=== PATIENT | female | born 1970 | race Two or more races ===

== ENCOUNTER 2017-10-01 10:16 | Day surgery (SDC) | payer OTHER ==
[2017-10-01] MEDS ORDERED: LIDOCAINE 4% SOLUTION 50 ML BTL (11:28)
[2017-10-01] MEDS ORDERED: MIDAZOLAM 1 MG/ML 2 ML INJ ×2 (12:14)
[2017-10-01] MEDS ORDERED: FENTAnyl 50 MCG/ML VIAL (12:15)
== END 2017-10-01 15:00 | disposition home or self-care (01) ==
LOC: GIL 10:16
DX: K29.50 Unspecified chronic gastritis without bleeding (principal); K64.4 Residual hemorrhoidal skin tags; K64.8 Other hemorrhoids; K21.0 Gastro-esophageal reflux disease with esophagitis
CPT/HCPCS: 43239; 82962; 88305; 88312

== ENCOUNTER 2019-01-02 11:07 | Inpatient (IN) | payer OTHER ==
[2019-01-02] MEDS: morphine 4 MG/ML VIAL IV ×2 (11:46→14:14)
[2019-01-02] MEDS: SOD CHLORIDE 0.9% 1,000 ML IV ×3 (11:46→17:39)
[2019-01-02] MEDS: ONDANSETRON 4 MG INJ IV ×3 (11:46→17:40)
[2019-01-02 11:47] LABS: ADD MAN DIFF? NO
[2019-01-02] MEDS: ACETAMINOPHEN 500 MG TAB PO ×2 (11:47→11:48)
[2019-01-02 11:51] LABS: BASOPHILS % 0.2 % (0.0-2.0); EOSINOPHILS # 0.1 10^3/ul (0.0-0.5); EOSINOPHILS % 1.4 % (0.0-7.0); HEMATOCRIT 40.1 % (37.0-47.0); HEMOGLOBIN 12.6 g/dl (12.0-16.0); LYMPHOCYTES # 3.1 10^3/ul (0.8-2.9); LYMPHOCYTES % 29.5 % (15.0-51.0); MEAN CORPUSCULAR HEMOGLOBIN 27.1 pg (29.0-33.0); MEAN CORPUSCULAR HGB CONC 31.4 g/dl (32.0-37.0); MEAN CORPUSCULAR VOLUME 86.2 fl (82.0-101.0); MONOCYTE # 0.5 10^3/ul (0.3-0.9); MONOCYTES % 5.1 % (0.0-11.0); NEUTROPHIL # 6.6 10^3/ul (1.6-7.5); NEUTROPHILS % 63.6 % (39.0-77.0); PLATELET COUNT 234 10^3/UL (140-415); RED BLOOD COUNT 4.65 10^6/ul (4.20-5.40); RED CELL DISTRIBUTION WIDTH 13.8 % (11.5-14.5)
[2019-01-02 11:51] LABS: WHITE BLOOD COUNT 10.3 10^3/ul (4.8-10.8)
[2019-01-02 11:59] LABS: ADD UMIC YES; UR ASCORBIC ACID NEGATIVE (NEGATIVE); UR BILIRUBIN (Dip) NEGATIVE (NEGATIVE); UR BLOOD (Dip) NEGATIVE (NEGATIVE); UR CLARITY CLEAR (CLEAR); UR COLOR YELLOW (YELLOW); UR GLUCOSE (Dip) NEGATIVE (NEGATIVE); UR KETONES (Dip) NEGATIVE (NEGATIVE); UR LEUKOCYTE ESTERASE (Dip) 2+ Leu/ul (NEGATIVE); UR NITRITE (Dip) NEGATIVE (NEGATIVE); UR RBC 1 /HPF (0-5); UR SPECIFIC GRAVITY (Dip) 1.011 (1.003-1.030); UR TOTAL PROTEIN (Dip) NEGATIVE (NEGATIVE); UR UROBILINOGEN (Dip) NEGATIVE (NEGATIVE); UR WBC 13 /HPF (0-5)
[2019-01-02] MEDS: IBUPROFEN 800 MG TAB PO (12:06)
[2019-01-02 12:09] LABS: ALANINE AMINOTRANSFERASE 32 IU/L (13-69); ALBUMIN 4.3 g/dl (3.3-4.9); ALBUMIN/GLOBULIN RATIO 1.19; ALKALINE PHOSPHATASE 108 IU/L (42-121); AMYLASE 112 U/L (11-123); ANION GAP 9 (5-13); ASPARTATE AMINO TRANSFERASE 42 IU/L (15-46); BILIRUBIN,INDIRECT 0.4 mg/dl (0-1.1); BILIRUBIN,TOTAL 0.4 mg/dl (0.2-1.3); BLOOD UREA NITROGEN 6 mg/dl (7-20); CALCIUM 9.7 mg/dl (8.4-10.2); CARBON DIOXIDE 26 mmol/L (21-31); CHLORIDE 106 mmol/L (97-110); CREATININE 0.55 mg/dl (0.44-1.00); Estimated GFR > 60 mL/min (>60); GLUCOSE 129 mg/dl (70-220); LIPASE 288 U/L (23-300); POTASSIUM 4.3 mmol/L (3.5-5.1); SODIUM 141 mmol/L (135-144); TOTAL PROTEIN 7.9 g/dl (6.1-8.1)
[2019-01-02 12:10] LABS: INR 1.03; PROTIME 13.6 Sec (11.9-14.9); PT RATIO 1.1
[2019-01-02 12:11] LABS: PARTIAL THROMBOPLASTIN TIME 32.9 Sec (23.0-35.0)
[2019-01-02 12:19] LABS: TROPONIN-I < 0.012 ng/ml (0.000-0.120)
[2019-01-02] MEDS: SOD CHLORIDE 0.9% 100 ML (13:00)
[2019-01-02] MEDS: IOHEXOL 300MG/ML 150 ML BTL (13:00)
[2019-01-02 13:58] LABS: CHOL/HDL RATIO 3.4 RATIO; HDL CHOLESTEROL 41 mg/dl (37-92); LDL CHOLESTEROL,CALCULATED 65 mg/dl; TRIGLYCERIDES 186 mg/dl (0-149)
[2019-01-02 13:58] LABS: CHOLESTEROL 143 mg/dl (100-200)
[2019-01-02] MEDS ORDERED: ACETAMINOPHEN 325 MG TAB PO (15:30)
[2019-01-02] MEDS ORDERED: ONDANSETRON 4 MG INJ IV (15:30)
[2019-01-02] MEDS ORDERED: NACL 0.9% 3 ML SYG IV (17:00)
[2019-01-02] MEDS: morphine 2 MG INJ IV ×2 (17:40→22:16)
[2019-01-02 18:59] LABS: HEMOGLOBIN A1C 7.2 % (0-5.9)
[2019-01-02 19:42] LABS: CANCER ANTIGEN 19-9 40.6 U/ml (0.0-37.0)
[2019-01-03] MEDS: SOD CHLORIDE 0.9% 1,000 ML IV ×4 (01:09→18:12)
[2019-01-03] MEDS: morphine 2 MG INJ IV ×5 (05:26→22:56)
[2019-01-03] MEDS: ACETAMINOPHEN 500 MG TAB PO (12:11)
[2019-01-03] MEDS: CREON (24K-76K-120K) 1 CAP PO ×2 (13:11→17:14)
[2019-01-03] MEDS ORDERED: ALBUTEROL HFA 8 GM INHALER INH (21:00)
[2019-01-03] MEDS: ATORVASTATIN 10 MG TAB PO (21:04)
[2019-01-03] MEDS: ALBUTEROL 0.083% (NEB) 2.5 MG/3 ML AMP HHN (21:54)
[2019-01-04] MEDS: SOD CHLORIDE 0.9% 1,000 ML IV ×3 (02:01→20:16)
[2019-01-04] MEDS: morphine 2 MG INJ IV ×4 (03:14→20:19)
[2019-01-04] MEDS: ALBUTEROL 0.083% (NEB) 2.5 MG/3 ML AMP HHN (04:18)
[2019-01-04] MEDS: PANTOPRAZOLE (EC) 40 MG TAB PO (05:37)
[2019-01-04 06:01] LABS: ADD MAN DIFF? NO
[2019-01-04 06:07] LABS: WHITE BLOOD COUNT 4.7 10^3/ul (4.8-10.8)
[2019-01-04 06:07] LABS: HEMATOCRIT 33.1 % (37.0-47.0); HEMOGLOBIN 10.4 g/dl (12.0-16.0); MEAN CORPUSCULAR HEMOGLOBIN 27.3 pg (29.0-33.0); MEAN CORPUSCULAR HGB CONC 31.4 g/dl (32.0-37.0); MEAN CORPUSCULAR VOLUME 86.9 fl (82.0-101.0); MEAN PLATELET VOLUME 10.3 fl (7.4-10.4); PLATELET COUNT 152 10^3/UL (140-415); RED BLOOD COUNT 3.81 10^6/ul (4.20-5.40); RED CELL DISTRIBUTION WIDTH 13.9 % (11.5-14.5)
[2019-01-04 06:32] LABS: ALANINE AMINOTRANSFERASE 34 IU/L (13-69); ALBUMIN 3.4 g/dl (3.3-4.9); ALBUMIN/GLOBULIN RATIO 1.09; ALKALINE PHOSPHATASE 79 IU/L (42-121); AMYLASE 108 U/L (11-123); ANION GAP 7 (5-13); ASPARTATE AMINO TRANSFERASE 31 IU/L (15-46); BILIRUBIN,INDIRECT 0.3 mg/dl (0-1.1); BILIRUBIN,TOTAL 0.3 mg/dl (0.2-1.3); BLOOD UREA NITROGEN 4 mg/dl (7-20); CALCIUM 8.9 mg/dl (8.4-10.2); CARBON DIOXIDE 27 mmol/L (21-31); CHLORIDE 105 mmol/L (97-110); Estimated GFR > 60 mL/min (>60); GLUCOSE 127 mg/dl (70-220); LIPASE 145 U/L (23-300); POTASSIUM 3.6 mmol/L (3.5-5.1); SODIUM 139 mmol/L (135-144); TOTAL PROTEIN 6.5 g/dl (6.1-8.1)
[2019-01-04 06:33] LABS: PHOSPHORUS 4.5 mg/dl (2.5-4.9)
[2019-01-04] MEDS: CREON (24K-76K-120K) 1 CAP PO ×3 (07:55→17:30)
[2019-01-04 10:24] LABS: EOSINOPHILS % (M) 3 % (0-7); LYMPHOCYTES #M 1.5 10^3/ul (0.8-2.9); LYMPHOCYTES % (M) 32 % (15-51); MONOCYTE #M 0.1 10^3/ul (0.3-0.9); MONOCYTES % (M) 4 % (0-11); PLATELET ESTIMATE NORMAL; SEGMENTED NEUTROPHILS (M) % 61 % (39-77); SMUDGE%M 10 % (0-0)
[2019-01-04] MEDS: ACETAMINOPHEN 500 MG TAB PO (11:57)
[2019-01-04] MEDS: ATORVASTATIN 10 MG TAB PO (21:07)
[2019-01-05] MEDS: ACETAMINOPHEN 500 MG TAB PO (00:12)
[2019-01-05] MEDS: SOD CHLORIDE 0.9% 1,000 ML IV ×3 (05:00→22:42)
[2019-01-05] MEDS: PANTOPRAZOLE (EC) 40 MG TAB PO (06:17)
[2019-01-05 06:19] LABS: ADD MAN DIFF? NO
[2019-01-05 06:24] LABS: BASOPHILS % 0.4 % (0.0-2.0); EOSINOPHILS # 0.1 10^3/ul (0.0-0.5); EOSINOPHILS % 2.5 % (0.0-7.0); HEMATOCRIT 33.6 % (37.0-47.0); HEMOGLOBIN 10.7 g/dl (12.0-16.0); LYMPHOCYTES # 2.6 10^3/ul (0.8-2.9); LYMPHOCYTES % 50.9 % (15.0-51.0); MEAN CORPUSCULAR HEMOGLOBIN 27.5 pg (29.0-33.0); MEAN CORPUSCULAR HGB CONC 31.8 g/dl (32.0-37.0); MEAN CORPUSCULAR VOLUME 86.4 fl (82.0-101.0); MEAN PLATELET VOLUME 10.2 fl (7.4-10.4); MONOCYTE # 0.2 10^3/ul (0.3-0.9); MONOCYTES % 4.7 % (0.0-11.0); NEUTROPHIL # 2.1 10^3/ul (1.6-7.5); NEUTROPHILS % 41.3 % (39.0-77.0); PLATELET COUNT 185 10^3/UL (140-415); RED BLOOD COUNT 3.89 10^6/ul (4.20-5.40); RED CELL DISTRIBUTION WIDTH 13.6 % (11.5-14.5)
[2019-01-05 06:24] LABS: WHITE BLOOD COUNT 5.1 10^3/ul (4.8-10.8)
[2019-01-05 06:47] LABS: PHOSPHORUS 4.9 mg/dl (2.5-4.9)
[2019-01-05 06:48] LABS: ALANINE AMINOTRANSFERASE 33 IU/L (13-69); ALBUMIN 3.6 g/dl (3.3-4.9); ALBUMIN/GLOBULIN RATIO 1.05; ALKALINE PHOSPHATASE 96 IU/L (42-121); ANION GAP 8 (5-13); ASPARTATE AMINO TRANSFERASE 44 IU/L (15-46); BILIRUBIN,INDIRECT 0.5 mg/dl (0-1.1); BILIRUBIN,TOTAL 0.5 mg/dl (0.2-1.3); BLOOD UREA NITROGEN 4 mg/dl (7-20); CALCIUM 8.9 mg/dl (8.4-10.2); CARBON DIOXIDE 27 mmol/L (21-31); CHLORIDE 107 mmol/L (97-110); Estimated GFR > 60 mL/min (>60); GLUCOSE 110 mg/dl (70-220); POTASSIUM 3.8 mmol/L (3.5-5.1); SODIUM 142 mmol/L (135-144)
[2019-01-05] MEDS: morphine 2 MG INJ IV ×4 (07:07→20:27)
[2019-01-05] MEDS: CREON (24K-76K-120K) 1 CAP PO ×3 (08:27→18:10)
[2019-01-05] MEDS: ONDANSETRON 4 MG INJ IV ×2 (11:46→20:30)
[2019-01-05] MEDS: LORATADINE 10 MG TAB PO (15:23)
[2019-01-05] MEDS: ATORVASTATIN 10 MG TAB PO (20:27)
[2019-01-06] MEDS: morphine 2 MG INJ IV ×5 (00:27→18:11)
[2019-01-06] MEDS: ONDANSETRON 4 MG INJ IV ×4 (03:31→22:34)
[2019-01-06 05:36] LABS: ADD MAN DIFF? NO
[2019-01-06 05:48] LABS: BASOPHILS % 0.5 % (0.0-2.0); EOSINOPHILS # 0.2 10^3/ul (0.0-0.5); HEMATOCRIT 33.9 % (37.0-47.0); HEMOGLOBIN 10.7 g/dl (12.0-16.0); LYMPHOCYTES # 2.7 10^3/ul (0.8-2.9); LYMPHOCYTES % 47.6 % (15.0-51.0); MEAN CORPUSCULAR HEMOGLOBIN 27.4 pg (29.0-33.0); MEAN CORPUSCULAR HGB CONC 31.6 g/dl (32.0-37.0); MEAN CORPUSCULAR VOLUME 86.7 fl (82.0-101.0); MEAN PLATELET VOLUME 10.3 fl (7.4-10.4); MONOCYTE # 0.3 10^3/ul (0.3-0.9); MONOCYTES % 4.5 % (0.0-11.0); NEUTROPHIL # 2.6 10^3/ul (1.6-7.5); NEUTROPHILS % 44.2 % (39.0-77.0); PLATELET COUNT 191 10^3/UL (140-415); RED BLOOD COUNT 3.91 10^6/ul (4.20-5.40); RED CELL DISTRIBUTION WIDTH 13.8 % (11.5-14.5)
[2019-01-06 05:48] LABS: WHITE BLOOD COUNT 5.8 10^3/ul (4.8-10.8)
[2019-01-06 05:58] LABS: MAGNESIUM 1.9 mg/dl (1.7-2.5)
[2019-01-06 06:00] LABS: ALANINE AMINOTRANSFERASE 34 IU/L (13-69); ALBUMIN 3.4 g/dl (3.3-4.9); ALBUMIN/GLOBULIN RATIO 1.09; ALKALINE PHOSPHATASE 76 IU/L (42-121); AMYLASE 85 U/L (11-123); ANION GAP 7 (5-13); ASPARTATE AMINO TRANSFERASE 41 IU/L (15-46); BILIRUBIN,INDIRECT 0.4 mg/dl (0-1.1); BILIRUBIN,TOTAL 0.4 mg/dl (0.2-1.3); BLOOD UREA NITROGEN 8 mg/dl (7-20); CARBON DIOXIDE 28 mmol/L (21-31); CHLORIDE 106 mmol/L (97-110); CREATININE 0.57 mg/dl (0.44-1.00); Estimated GFR > 60 mL/min (>60); GLUCOSE 121 mg/dl (70-220); LIPASE 127 U/L (23-300); POTASSIUM 3.9 mmol/L (3.5-5.1); SODIUM 141 mmol/L (135-144); TOTAL PROTEIN 6.5 g/dl (6.1-8.1)
[2019-01-06] MEDS: PANTOPRAZOLE (EC) 40 MG TAB PO (06:00)
[2019-01-06] MEDS: SOD CHLORIDE 0.9% 1,000 ML IV ×2 (06:46→15:10)
[2019-01-06] MEDS: CREON (24K-76K-120K) 1 CAP PO ×3 (08:42→18:14)
[2019-01-06] MEDS: LORATADINE 10 MG TAB PO (08:42)
[2019-01-06] MEDS: ATORVASTATIN 10 MG TAB PO (21:00)
[2019-01-06] MEDS: KETOROLAC 30 MG INJ IV (22:31)
[2019-01-07] MEDS: SOD CHLORIDE 0.9% 1,000 ML IV ×2 (03:18→18:36)
[2019-01-07] MEDS: PANTOPRAZOLE (EC) 40 MG TAB PO (05:44)
[2019-01-07 06:22] LABS: ADD MAN DIFF? NO
[2019-01-07 06:37] LABS: WHITE BLOOD COUNT 6.3 10^3/ul (4.8-10.8)
[2019-01-07 06:37] LABS: BASOPHILS % 0.3 % (0.0-2.0); EOSINOPHILS # 0.2 10^3/ul (0.0-0.5); HEMATOCRIT 35.4 % (37.0-47.0); HEMOGLOBIN 11.3 g/dl (12.0-16.0); LYMPHOCYTES # 2.6 10^3/ul (0.8-2.9); LYMPHOCYTES % 41.1 % (15.0-51.0); MEAN CORPUSCULAR HEMOGLOBIN 27.4 pg (29.0-33.0); MEAN CORPUSCULAR HGB CONC 31.9 g/dl (32.0-37.0); MEAN CORPUSCULAR VOLUME 85.7 fl (82.0-101.0); MEAN PLATELET VOLUME 9.6 fl (7.4-10.4); MONOCYTE # 0.3 10^3/ul (0.3-0.9); MONOCYTES % 5.2 % (0.0-11.0); NEUTROPHIL # 3.2 10^3/ul (1.6-7.5); NEUTROPHILS % 50.1 % (39.0-77.0); PLATELET COUNT 192 10^3/UL (140-415); RED BLOOD COUNT 4.13 10^6/ul (4.20-5.40); RED CELL DISTRIBUTION WIDTH 13.8 % (11.5-14.5)
[2019-01-07 06:50] LABS: INR 1.08; PROTIME 14.1 Sec (11.9-14.9); PT RATIO 1.1
[2019-01-07 07:15] LABS: ALANINE AMINOTRANSFERASE 37 IU/L (13-69); ALBUMIN 3.6 g/dl (3.3-4.9); ALKALINE PHOSPHATASE 92 IU/L (42-121); ANION GAP 7 (5-13); ASPARTATE AMINO TRANSFERASE 46 IU/L (15-46); BILIRUBIN,INDIRECT 0.3 mg/dl (0-1.1); BILIRUBIN,TOTAL 0.3 mg/dl (0.2-1.3); BLOOD UREA NITROGEN 10 mg/dl (7-20); CARBON DIOXIDE 28 mmol/L (21-31); CHLORIDE 107 mmol/L (97-110); CREATININE 0.58 mg/dl (0.44-1.00); Estimated GFR > 60 mL/min (>60); GLUCOSE 108 mg/dl (70-220); SODIUM 142 mmol/L (135-144); TOTAL PROTEIN 7.2 g/dl (6.1-8.1)
[2019-01-07 07:33] LABS: LIPASE 179 U/L (23-300)
[2019-01-07 07:33] LABS: LACTATE DEHYDROGENASE 436 IU/L (313-618)
[2019-01-07] MEDS: LORATADINE 10 MG TAB PO (09:00)
[2019-01-07] MEDS: CREON (24K-76K-120K) 1 CAP PO ×3 (09:34→18:36)
[2019-01-07] MEDS: PROPOFOL 40 ML (14:00)
[2019-01-07] MEDS: LIDOCAINE 2% (SDV) 5 ML INJ (14:00)
[2019-01-07] MEDS: ONDANSETRON 4 MG INJ IV (16:05)
[2019-01-07] MEDS: morphine 2 MG INJ IV ×2 (16:05→21:20)
[2019-01-07] MEDS: ATORVASTATIN 10 MG TAB PO (21:21)
[2019-01-08] MEDS: morphine 2 MG INJ IV ×5 (03:34→22:08)
[2019-01-08] MEDS: PANTOPRAZOLE (EC) 40 MG TAB PO (05:56)
[2019-01-08] MEDS: ONDANSETRON 4 MG INJ IV ×2 (05:59→18:06)
[2019-01-08 07:30] LABS: ADD MAN DIFF? NO
[2019-01-08 07:33] LABS: BASOPHILS % 0.3 % (0.0-2.0); EOSINOPHILS # 0.2 10^3/ul (0.0-0.5); HEMOGLOBIN 10.9 g/dl (12.0-16.0); LYMPHOCYTES # 2.8 10^3/ul (0.8-2.9); LYMPHOCYTES % 42.3 % (15.0-51.0); MEAN CORPUSCULAR HEMOGLOBIN 27.4 pg (29.0-33.0); MEAN CORPUSCULAR HGB CONC 32.1 g/dl (32.0-37.0); MEAN CORPUSCULAR VOLUME 85.4 fl (82.0-101.0); MEAN PLATELET VOLUME 9.6 fl (7.4-10.4); MONOCYTE # 0.3 10^3/ul (0.3-0.9); MONOCYTES % 4.7 % (0.0-11.0); NEUTROPHIL # 3.3 10^3/ul (1.6-7.5); NEUTROPHILS % 49.5 % (39.0-77.0); PLATELET COUNT 180 10^3/UL (140-415); RED BLOOD COUNT 3.98 10^6/ul (4.20-5.40); RED CELL DISTRIBUTION WIDTH 13.7 % (11.5-14.5)
[2019-01-08 07:33] LABS: WHITE BLOOD COUNT 6.6 10^3/ul (4.8-10.8)
[2019-01-08 07:55] LABS: LIPASE 140 U/L (23-300)
[2019-01-08 08:04] LABS: ALANINE AMINOTRANSFERASE 35 IU/L (13-69); ALBUMIN 3.6 g/dl (3.3-4.9); ALBUMIN/GLOBULIN RATIO 1.02; ALKALINE PHOSPHATASE 91 IU/L (42-121); ANION GAP 7 (5-13); ASPARTATE AMINO TRANSFERASE 38 IU/L (15-46); BILIRUBIN,INDIRECT 0.5 mg/dl (0-1.1); BILIRUBIN,TOTAL 0.5 mg/dl (0.2-1.3); BLOOD UREA NITROGEN 9 mg/dl (7-20); CALCIUM 8.9 mg/dl (8.4-10.2); CARBON DIOXIDE 27 mmol/L (21-31); CHLORIDE 107 mmol/L (97-110); CREATININE 0.56 mg/dl (0.44-1.00); Estimated GFR > 60 mL/min (>60); GLUCOSE 103 mg/dl (70-220); POTASSIUM 3.8 mmol/L (3.5-5.1); SODIUM 141 mmol/L (135-144); TOTAL PROTEIN 7.1 g/dl (6.1-8.1)
[2019-01-08] MEDS: ACETAMINOPHEN 500 MG TAB PO (08:52)
[2019-01-08] MEDS: LORATADINE 10 MG TAB PO (08:57)
[2019-01-08] MEDS: CREON (24K-76K-120K) 1 CAP PO ×3 (08:59→18:02)
[2019-01-08] MEDS: SOD CHLORIDE 0.9% 1,000 ML IV ×2 (09:56→21:52)
[2019-01-08] MEDS: ATORVASTATIN 10 MG TAB PO (21:47)
[2019-01-09] MEDS: ONDANSETRON 4 MG INJ IV (00:55)
[2019-01-09] MEDS: morphine 2 MG INJ IV ×4 (02:30→15:02)
[2019-01-09] MEDS: MAGNESIUM HYDROXIDE 30ML CUP PO ×2 (06:40→15:18)
[2019-01-09] MEDS: SENNA TAB PO (06:40)
[2019-01-09] MEDS: PANTOPRAZOLE (EC) 40 MG TAB PO (06:40)
[2019-01-09] MEDS: LORATADINE 10 MG TAB PO (09:06)
[2019-01-09] MEDS: CREON (24K-76K-120K) 1 CAP PO ×3 (09:06→17:49)
[2019-01-09] MEDS: DOCUSATE SODIUM 100 MG CAP PO (12:16)
[2019-01-09] MEDS ORDERED: traMADol 50 MG TAB PO (15:00)
[2019-01-09] MEDS ORDERED: morphine 2 MG INJ IV (15:00)
== END 2019-01-09 18:00 | disposition home or self-care (01) | DRG 439 ==
LOC: PP2 01-04 03:47 → E/R 11:07 → PP2 01-07 00:03 → 2NE 15:15
PROC: 0DB68ZX Excision of Stomach, Via Natural or Artificial Opening Endoscopic, Diagnostic (ICD-10-PCS; principal; 2019-01-07 13:30)
DX: K85.90 Acute pancreatitis without necrosis or infection, unspecified (principal); K86.3 Pseudocyst of pancreas; N39.0 Urinary tract infection, site not specified; K86.1 Other chronic pancreatitis; E66.9 Obesity, unspecified; Z68.30 Body mass index [BMI] 30.0-30.9, adult; E88.81 Metabolic syndrome and other insulin resistance; R16.0 Hepatomegaly, not elsewhere classified; K76.0 Fatty (change of) liver, not elsewhere classified; J45.909 Unspecified asthma, uncomplicated; Z90.49 Acquired absence of other specified parts of digestive tract; K21.9 Gastro-esophageal reflux disease without esophagitis; K29.30 Chronic superficial gastritis without bleeding; D64.9 Anemia, unspecified; E78.5 Hyperlipidemia, unspecified
CPT/HCPCS: 36415; 70360; 74018; 74177; 80053; 80061; 81001; 82150; 83036; 83615; 83690; 83735; 84100; 84145; 84484; 84703; 85025; 85610; 85730; 86301; 87086; 87880; 88305; 88312; 93005; 94640; 94664; 96361; 96374; 96375; 96376; 99285-25

== ENCOUNTER 2019-01-18 16:40 | Inpatient (IN) | payer OTHER ==
[2019-01-18] MEDS: morphine 4 MG/ML VIAL IV ×2 (16:58→19:55)
[2019-01-18] MEDS: ONDANSETRON 4 MG INJ IV ×3 (16:58→23:57)
[2019-01-18] MEDS: SOD CHLORIDE 0.9% 1,000 ML IV (16:58)
[2019-01-18 17:10] LABS: ADD MAN DIFF? NO
[2019-01-18 17:15] LABS: WHITE BLOOD COUNT 13.6 10^3/ul (4.8-10.8)
[2019-01-18 17:15] LABS: BASOPHILS % 0.3 % (0.0-2.0); EOSINOPHILS # 0.1 10^3/ul (0.0-0.5); EOSINOPHILS % 0.4 % (0.0-7.0); HEMATOCRIT 38.4 % (37.0-47.0); HEMOGLOBIN 12.2 g/dl (12.0-16.0); LYMPHOCYTES # 2.6 10^3/ul (0.8-2.9); MEAN CORPUSCULAR HEMOGLOBIN 27.4 pg (29.0-33.0); MEAN CORPUSCULAR HGB CONC 31.8 g/dl (32.0-37.0); MEAN CORPUSCULAR VOLUME 86.1 fl (82.0-101.0); MEAN PLATELET VOLUME 9.9 fl (7.4-10.4); MONOCYTE # 0.5 10^3/ul (0.3-0.9); MONOCYTES % 3.6 % (0.0-11.0); NEUTROPHIL # 10.4 10^3/ul (1.6-7.5); NEUTROPHILS % 76.3 % (39.0-77.0); PLATELET COUNT 251 10^3/UL (140-415); RED BLOOD COUNT 4.46 10^6/ul (4.20-5.40)
[2019-01-18 17:30] LABS: ALANINE AMINOTRANSFERASE 32 IU/L (13-69); ALBUMIN 4.2 g/dl (3.3-4.9); ALBUMIN/GLOBULIN RATIO 1.07; ALKALINE PHOSPHATASE 113 IU/L (42-121); ANION GAP 12 (5-13); ASPARTATE AMINO TRANSFERASE 52 IU/L (15-46); BILIRUBIN,INDIRECT 0.4 mg/dl (0-1.1); BILIRUBIN,TOTAL 0.4 mg/dl (0.2-1.3); BLOOD UREA NITROGEN 13 mg/dl (7-20); CALCIUM 9.4 mg/dl (8.4-10.2); CARBON DIOXIDE 24 mmol/L (21-31); CHLORIDE 104 mmol/L (97-110); CREATININE 0.56 mg/dl (0.44-1.00); Estimated GFR > 60 mL/min (>60); GLUCOSE 179 mg/dl (70-220); POTASSIUM 3.7 mmol/L (3.5-5.1); SODIUM 140 mmol/L (135-144); TOTAL PROTEIN 8.1 g/dl (6.1-8.1)
[2019-01-18 17:33] LABS: INR 1.06; PROTIME 13.9 Sec (11.9-14.9); PT RATIO 1.1
[2019-01-18 17:34] LABS: PARTIAL THROMBOPLASTIN TIME 30.4 Sec (23.0-35.0)
[2019-01-18 17:36] LABS: AMYLASE 1989 U/L (11-123)
[2019-01-18] MEDS: SOD CHLORIDE 0.9% 100 ML (17:39)
[2019-01-18] MEDS: IOHEXOL 300MG/ML 150 ML BTL (17:39)
[2019-01-18 17:41] LABS: TROPONIN-I < 0.012 ng/ml (0.000-0.120)
[2019-01-18] MEDS: LORAZEPAM 2 MG INJ IV (17:43)
[2019-01-18 18:01] LABS: LIPASE 17728 U/L (23-300)
[2019-01-18] MEDS: KETAMINE (50 MG/ML) 10 ML VIAL IV (18:19)
[2019-01-18] MEDS: PIPER-TAZO 3.375 GM IV (PMX) 100 ML IVPB (21:21)
[2019-01-18] MEDS ORDERED: ACETAMINOPHEN 325 MG TAB PO (21:30)
[2019-01-18] MEDS: LACTATED RINGER'S 1,000 ML IV (21:44)
[2019-01-18 21:47] LABS: TRIGLYCERIDES 276 mg/dl (0-149)
[2019-01-18 21:54] LABS: ETHANOL < 10.0 mg/dl (0-0)
[2019-01-18] MEDS: HYDROmorphONE 2 MG/ML SYG IV (23:58)
[2019-01-19] MEDS: LACTATED RINGER'S 1,000 ML IV ×5 (02:22→22:46)
[2019-01-19 05:14] LABS: ADD MAN DIFF? NO
[2019-01-19] MEDS: PANTOPRAZOLE 40 MG INJ IV (05:14)
[2019-01-19] MEDS: ONDANSETRON 4 MG INJ IV ×3 (05:15→23:27)
[2019-01-19] MEDS: HYDROmorphONE 2 MG/ML SYG IV ×4 (05:15→22:01)
[2019-01-19 05:20] LABS: WHITE BLOOD COUNT 10.7 10^3/ul (4.8-10.8)
[2019-01-19 05:20] LABS: BASOPHILS % 0.3 % (0.0-2.0); EOSINOPHILS # 0.1 10^3/ul (0.0-0.5); EOSINOPHILS % 0.6 % (0.0-7.0); HEMATOCRIT 33.1 % (37.0-47.0); HEMOGLOBIN 10.7 g/dl (12.0-16.0); LYMPHOCYTES # 3.3 10^3/ul (0.8-2.9); LYMPHOCYTES % 31.3 % (15.0-51.0); MEAN CORPUSCULAR HEMOGLOBIN 27.8 pg (29.0-33.0); MEAN CORPUSCULAR HGB CONC 32.3 g/dl (32.0-37.0); MEAN PLATELET VOLUME 10.2 fl (7.4-10.4); MONOCYTE # 0.5 10^3/ul (0.3-0.9); MONOCYTES % 5.1 % (0.0-11.0); NEUTROPHIL # 6.7 10^3/ul (1.6-7.5); NEUTROPHILS % 62.3 % (39.0-77.0); PLATELET COUNT 236 10^3/UL (140-415); RED BLOOD COUNT 3.85 10^6/ul (4.20-5.40); RED CELL DISTRIBUTION WIDTH 14.3 % (11.5-14.5)
[2019-01-19 06:15] LABS: ALANINE AMINOTRANSFERASE 25 IU/L (13-69); ALBUMIN 3.4 g/dl (3.3-4.9); ALBUMIN/GLOBULIN RATIO 1.06; ALKALINE PHOSPHATASE 79 IU/L (42-121); ANION GAP 6 (5-13); ASPARTATE AMINO TRANSFERASE 37 IU/L (15-46); BILIRUBIN,INDIRECT 0.7 mg/dl (0-1.1); BILIRUBIN,TOTAL 0.7 mg/dl (0.2-1.3); BLOOD UREA NITROGEN 14 mg/dl (7-20); CALCIUM 8.7 mg/dl (8.4-10.2); CARBON DIOXIDE 27 mmol/L (21-31); CHLORIDE 107 mmol/L (97-110); CREATININE 0.55 mg/dl (0.44-1.00); Estimated GFR > 60 mL/min (>60); GLUCOSE 121 mg/dl (70-220); PHOSPHORUS 5.5 mg/dl (2.5-4.9); POTASSIUM 4.3 mmol/L (3.5-5.1); SODIUM 140 mmol/L (135-144); TOTAL PROTEIN 6.6 g/dl (6.1-8.1)
[2019-01-19 07:13] LABS: HEMOGLOBIN A1C 6.8 % (0-5.9)
[2019-01-19] MEDS ORDERED: PE/SHARK OIL/MO/PETROL 30 GM OINT PR (11:30)
[2019-01-19] MEDS ORDERED: ALBUTEROL 18 GM INHALER INH (11:30)
[2019-01-19] MEDS: ACETAMINOPHEN 325 MG TAB PO (12:41)
[2019-01-19 14:23] LABS: IMMUNOGLOBULIN G 1213 mg/dl (700-1600)
[2019-01-19] MEDS: FAMOTIDINE 20 MG INJ IV (22:02)
[2019-01-19] MEDS: HEPARIN 5,000 UNIT/1 ML VIAL SC (22:04)
[2019-01-19] MEDS: ALBUTEROL HFA 8 GM INHALER INH (22:06)
[2019-01-20] MEDS: ACETAMINOPHEN 325 MG TAB PO ×2 (02:21→19:41)
[2019-01-20] MEDS: LACTATED RINGER'S 1,000 ML IV ×5 (03:47→23:07)
[2019-01-20 05:19] LABS: ADD MAN DIFF? NO
[2019-01-20 05:24] LABS: WHITE BLOOD COUNT 6.8 10^3/ul (4.8-10.8)
[2019-01-20 05:24] LABS: BASOPHILS % 0.1 % (0.0-2.0); EOSINOPHILS # 0.2 10^3/ul (0.0-0.5); EOSINOPHILS % 2.9 % (0.0-7.0); HEMATOCRIT 28.8 % (37.0-47.0); LYMPHOCYTES # 2.5 10^3/ul (0.8-2.9); LYMPHOCYTES % 36.8 % (15.0-51.0); MEAN CORPUSCULAR HEMOGLOBIN 27.4 pg (29.0-33.0); MEAN CORPUSCULAR HGB CONC 31.3 g/dl (32.0-37.0); MEAN CORPUSCULAR VOLUME 87.5 fl (82.0-101.0); MEAN PLATELET VOLUME 10.1 fl (7.4-10.4); MONOCYTE # 0.4 10^3/ul (0.3-0.9); MONOCYTES % 5.3 % (0.0-11.0); NEUTROPHIL # 3.7 10^3/ul (1.6-7.5); NEUTROPHILS % 54.6 % (39.0-77.0); PLATELET COUNT 154 10^3/UL (140-415); RED BLOOD COUNT 3.29 10^6/ul (4.20-5.40); RED CELL DISTRIBUTION WIDTH 14.3 % (11.5-14.5)
[2019-01-20 05:56] LABS: ANION GAP 4 (5-13); BLOOD UREA NITROGEN 9 mg/dl (7-20); CALCIUM 8.1 mg/dl (8.4-10.2); CARBON DIOXIDE 29 mmol/L (21-31); CHLORIDE 105 mmol/L (97-110); CREATININE 0.49 mg/dl (0.44-1.00); Estimated GFR > 60 mL/min (>60); GLUCOSE 100 mg/dl (70-220); MAGNESIUM 1.8 mg/dl (1.7-2.5); PHOSPHORUS 3.7 mg/dl (2.5-4.9); POTASSIUM 3.5 mmol/L (3.5-5.1); SODIUM 138 mmol/L (135-144)
[2019-01-20] MEDS: HYDROmorphONE 2 MG/ML SYG IV ×3 (06:13→20:45)
[2019-01-20] MEDS: HEPARIN 5,000 UNIT/1 ML VIAL SC ×2 (09:22→20:50)
[2019-01-20] MEDS: FAMOTIDINE 20 MG INJ IV ×2 (09:23→20:45)
[2019-01-20 09:33] LABS: AMPHETAMINE/METHAMPHETAMINE Negative (NEGATIVE); BARBITURATES Negative (NEGATIVE); BENZODIAZEPINES Negative (NEGATIVE); CANNABINOIDS Negative (NEGATIVE); COCAINE Negative (NEGATIVE); OPIATES Positive (NEGATIVE)
[2019-01-20] MEDS: ONDANSETRON 4 MG INJ IV ×2 (11:16→18:22)
[2019-01-20] MEDS: ALBUTEROL HFA 8 GM INHALER INH (17:53)
[2019-01-20 20:00] LABS: LIPASE 283 U/L (23-300)
[2019-01-20 20:00] LABS: AMYLASE 179 U/L (11-123)
[2019-01-20] MEDS: DIPHENHYDRAMINE 50 MG INJ IV (20:54)
[2019-01-21] MEDS: HYDROmorphONE 2 MG/ML SYG IV ×5 (01:36→22:32)
[2019-01-21] MEDS: ONDANSETRON 4 MG INJ IV ×3 (01:42→20:43)
[2019-01-21] MEDS: DIPHENHYDRAMINE 50 MG INJ IV ×5 (01:42→22:32)
[2019-01-21] MEDS: LACTATED RINGER'S 1,000 ML IV ×4 (04:44→20:53)
[2019-01-21] MEDS: ACETAMINOPHEN 500 MG TAB PO ×2 (05:01→16:34)
[2019-01-21 05:53] LABS: ADD MAN DIFF? NO; BASOPHILS % 0.4 % (0.0-2.0); EOSINOPHILS # 0.2 10^3/ul (0.0-0.5); EOSINOPHILS % 2.7 % (0.0-7.0); HEMATOCRIT 27.5 % (37.0-47.0); HEMOGLOBIN 8.5 g/dl (12.0-16.0); LYMPHOCYTES # 2.4 10^3/ul (0.8-2.9); LYMPHOCYTES % 42.8 % (15.0-51.0); MEAN CORPUSCULAR HEMOGLOBIN 27.3 pg (29.0-33.0); MEAN CORPUSCULAR HGB CONC 30.9 g/dl (32.0-37.0); MEAN CORPUSCULAR VOLUME 88.4 fl (82.0-101.0); MEAN PLATELET VOLUME 10.2 fl (7.4-10.4); MONOCYTE # 0.3 10^3/ul (0.3-0.9); MONOCYTES % 5.8 % (0.0-11.0); NEUTROPHIL # 2.6 10^3/ul (1.6-7.5); NEUTROPHILS % 47.9 % (39.0-77.0); PLATELET COUNT 150 10^3/UL (140-415); RED BLOOD COUNT 3.11 10^6/ul (4.20-5.40); RED CELL DISTRIBUTION WIDTH 14.1 % (11.5-14.5)
[2019-01-21 05:53] LABS: WHITE BLOOD COUNT 5.5 10^3/ul (4.8-10.8)
[2019-01-21 06:25] LABS: LIPASE 249 U/L (23-300)
[2019-01-21 06:30] LABS: ANION GAP 4 (5-13); Estimated GFR > 60 mL/min (>60)
[2019-01-21 06:38] LABS: BLOOD UREA NITROGEN 5 mg/dl (7-20); CALCIUM 8.1 mg/dl (8.4-10.2); CARBON DIOXIDE 33 mmol/L (21-31); CHLORIDE 102 mmol/L (97-110); GLUCOSE 82 mg/dl (70-220); POTASSIUM 3.7 mmol/L (3.5-5.1); SODIUM 139 mmol/L (135-144)
[2019-01-21] MEDS: FAMOTIDINE 20 MG INJ IV ×2 (09:50→20:46)
[2019-01-21] MEDS: HEPARIN 5,000 UNIT/1 ML VIAL SC ×2 (09:51→20:51)
[2019-01-21] MEDS: ALBUTEROL HFA 8 GM INHALER INH ×2 (09:59→16:38)
[2019-01-22] MEDS: ALBUTEROL HFA 8 GM INHALER INH ×2 (02:35→07:25)
[2019-01-22] MEDS: DIPHENHYDRAMINE 50 MG INJ IV ×4 (02:57→21:36)
[2019-01-22] MEDS: HYDROmorphONE 2 MG/ML SYG IV ×4 (02:57→21:36)
[2019-01-22 05:30] LABS: ADD MAN DIFF? NO
[2019-01-22 05:36] LABS: WHITE BLOOD COUNT 5.4 10^3/ul (4.8-10.8)
[2019-01-22 05:36] LABS: BASOPHILS % 0.2 % (0.0-2.0); EOSINOPHILS # 0.2 10^3/ul (0.0-0.5); EOSINOPHILS % 3.3 % (0.0-7.0); HEMATOCRIT 26.8 % (37.0-47.0); HEMOGLOBIN 8.5 g/dl (12.0-16.0); LYMPHOCYTES # 2.3 10^3/ul (0.8-2.9); LYMPHOCYTES % 42.9 % (15.0-51.0); MEAN CORPUSCULAR HEMOGLOBIN 27.8 pg (29.0-33.0); MEAN CORPUSCULAR HGB CONC 31.7 g/dl (32.0-37.0); MEAN CORPUSCULAR VOLUME 87.6 fl (82.0-101.0); MEAN PLATELET VOLUME 10.4 fl (7.4-10.4); MONOCYTE # 0.3 10^3/ul (0.3-0.9); MONOCYTES % 5.5 % (0.0-11.0); NEUTROPHIL # 2.6 10^3/ul (1.6-7.5); NEUTROPHILS % 47.9 % (39.0-77.0); PLATELET COUNT 178 10^3/UL (140-415); RED BLOOD COUNT 3.06 10^6/ul (4.20-5.40); RED CELL DISTRIBUTION WIDTH 14.2 % (11.5-14.5)
[2019-01-22 06:05] LABS: ANION GAP 5 (5-13); BLOOD UREA NITROGEN 4 mg/dl (7-20); CALCIUM 8.2 mg/dl (8.4-10.2); CARBON DIOXIDE 32 mmol/L (21-31); CHLORIDE 102 mmol/L (97-110); CREATININE 0.53 mg/dl (0.44-1.00); Estimated GFR > 60 mL/min (>60); GLUCOSE 96 mg/dl (70-220); POTASSIUM 3.5 mmol/L (3.5-5.1); SODIUM 139 mmol/L (135-144)
[2019-01-22] MEDS: ONDANSETRON 4 MG INJ IV ×2 (08:33→21:32)
[2019-01-22] MEDS: FAMOTIDINE 20 MG INJ IV ×2 (08:33→21:30)
[2019-01-22] MEDS: HEPARIN 5,000 UNIT/1 ML VIAL SC ×2 (08:35→21:43)
[2019-01-22 09:08] LABS: AMYLASE 78 U/L (11-123)
[2019-01-22 09:08] LABS: LIPASE 115 U/L (23-300)
[2019-01-22] MEDS: SOD CHLORIDE 0.9% 1,000 ML IV ×2 (09:38→17:56)
[2019-01-22 09:47] LABS: IRON 35 ug/dl (35-150)
[2019-01-22 09:56] LABS: % IRON SATURATION 13 % SAT (22-52); TOTAL IRON BINDING CAPACITY 272 ug/dl (241-421)
[2019-01-22 10:23] LABS: FERRITIN 87.6 ng/ml (11.1-264.0)
[2019-01-22 13:03] LABS: OCCULT BLOOD STOOL NEGATIVE (NEGATIVE)
[2019-01-22] MEDS: KETOROLAC 30 MG INJ IV (13:10)
[2019-01-22] MEDS: ACETAMINOPHEN 500 MG TAB PO (13:16)
[2019-01-22] MEDS: ALBUTEROL 0.083% (NEB) 2.5 MG/3 ML AMP HHN ×2 (13:53→20:30)
[2019-01-23] MEDS: DIPHENHYDRAMINE 50 MG INJ IV ×4 (01:44→20:14)
[2019-01-23] MEDS: HYDROmorphONE 2 MG/ML SYG IV ×4 (01:44→20:15)
[2019-01-23] MEDS: SOD CHLORIDE 0.9% 1,000 ML IV ×3 (01:50→20:21)
[2019-01-23 05:49] LABS: ADD MAN DIFF? NO
[2019-01-23 06:00] LABS: WHITE BLOOD COUNT 4.8 10^3/ul (4.8-10.8)
[2019-01-23 06:00] LABS: BASOPHILS % 0.2 % (0.0-2.0); EOSINOPHILS # 0.2 10^3/ul (0.0-0.5); HEMATOCRIT 27.5 % (37.0-47.0); HEMOGLOBIN 8.5 g/dl (12.0-16.0); LYMPHOCYTES % 42.5 % (15.0-51.0); MEAN CORPUSCULAR HEMOGLOBIN 27.2 pg (29.0-33.0); MEAN CORPUSCULAR HGB CONC 30.9 g/dl (32.0-37.0); MEAN CORPUSCULAR VOLUME 88.1 fl (82.0-101.0); MEAN PLATELET VOLUME 10.3 fl (7.4-10.4); MONOCYTE # 0.3 10^3/ul (0.3-0.9); MONOCYTES % 6.1 % (0.0-11.0); NEUTROPHIL # 2.2 10^3/ul (1.6-7.5); PLATELET COUNT 176 10^3/UL (140-415); RED BLOOD COUNT 3.12 10^6/ul (4.20-5.40); RED CELL DISTRIBUTION WIDTH 14.6 % (11.5-14.5)
[2019-01-23 06:18] LABS: ANION GAP 5 (5-13); BLOOD UREA NITROGEN 3 mg/dl (7-20); CALCIUM 8.4 mg/dl (8.4-10.2); CARBON DIOXIDE 32 mmol/L (21-31); CHLORIDE 104 mmol/L (97-110); CREATININE 0.57 mg/dl (0.44-1.00); Estimated GFR > 60 mL/min (>60); GLUCOSE 99 mg/dl (70-220); POTASSIUM 3.4 mmol/L (3.5-5.1); SODIUM 141 mmol/L (135-144)
[2019-01-23 06:24] LABS: AMYLASE 52 U/L (11-123)
[2019-01-23 06:24] LABS: LIPASE 129 U/L (23-300)
[2019-01-23 06:27] LABS: PHOSPHORUS 4.7 mg/dl (2.5-4.9)
[2019-01-23] MEDS: FAMOTIDINE 20 MG INJ IV (07:44)
[2019-01-23] MEDS: ONDANSETRON 4 MG INJ IV ×3 (07:44→20:14)
[2019-01-23] MEDS: HEPARIN 5,000 UNIT/1 ML VIAL SC ×2 (07:47→20:17)
[2019-01-23] MEDS: ALBUTEROL 0.083% (NEB) 2.5 MG/3 ML AMP HHN ×3 (08:03→20:09)
[2019-01-23] MEDS: POTASSIUM CHLORIDE 20 MEQ POWDER FOR ORAL SOLN PO (11:34)
[2019-01-23] MEDS: FAMOTIDINE 20 MG TAB PO (20:15)
[2019-01-23] MEDS: NACL 0.9% 3 ML SYG IV (20:15)
[2019-01-24] MEDS: DIPHENHYDRAMINE 50 MG INJ IV ×3 (00:19→12:38)
[2019-01-24] MEDS: HYDROmorphONE 2 MG/ML SYG IV ×3 (00:19→11:38)
[2019-01-24 05:00] LABS: ADD MAN DIFF? NO
[2019-01-24 05:08] LABS: BASOPHILS % 0.4 % (0.0-2.0); EOSINOPHILS # 0.2 10^3/ul (0.0-0.5); HEMATOCRIT 27.8 % (37.0-47.0); HEMOGLOBIN 8.8 g/dl (12.0-16.0); LYMPHOCYTES # 2.1 10^3/ul (0.8-2.9); LYMPHOCYTES % 44.5 % (15.0-51.0); MEAN CORPUSCULAR HEMOGLOBIN 27.8 pg (29.0-33.0); MEAN CORPUSCULAR HGB CONC 31.7 g/dl (32.0-37.0); MEAN CORPUSCULAR VOLUME 87.7 fl (82.0-101.0); MEAN PLATELET VOLUME 10.2 fl (7.4-10.4); MONOCYTE # 0.3 10^3/ul (0.3-0.9); MONOCYTES % 5.9 % (0.0-11.0); NEUTROPHIL # 2.1 10^3/ul (1.6-7.5); PLATELET COUNT 192 10^3/UL (140-415); RED BLOOD COUNT 3.17 10^6/ul (4.20-5.40); RED CELL DISTRIBUTION WIDTH 14.7 % (11.5-14.5)
[2019-01-24 05:08] LABS: WHITE BLOOD COUNT 4.7 10^3/ul (4.8-10.8)
[2019-01-24 05:24] LABS: ANION GAP 6 (5-13); BLOOD UREA NITROGEN 4 mg/dl (7-20); CALCIUM 8.6 mg/dl (8.4-10.2); CARBON DIOXIDE 29 mmol/L (21-31); CHLORIDE 107 mmol/L (97-110); Estimated GFR > 60 mL/min (>60); GLUCOSE 113 mg/dl (70-220); POTASSIUM 3.7 mmol/L (3.5-5.1); SODIUM 142 mmol/L (135-144)
[2019-01-24 05:25] LABS: MAGNESIUM 2.1 mg/dl (1.7-2.5)
[2019-01-24 05:25] LABS: PHOSPHORUS 4.5 mg/dl (2.5-4.9)
[2019-01-24 05:56] LABS: LIPASE 139 U/L (23-300)
[2019-01-24 05:56] LABS: AMYLASE 66 U/L (11-123)
[2019-01-24] MEDS: ONDANSETRON 4 MG INJ IV ×3 (06:33→18:35)
[2019-01-24] MEDS: SOD CHLORIDE 0.9% 1,000 ML IV ×2 (06:37→16:54)
[2019-01-24] MEDS: ALBUTEROL 0.083% (NEB) 2.5 MG/3 ML AMP HHN ×3 (08:01→20:01)
[2019-01-24] MEDS: FAMOTIDINE 20 MG TAB PO ×2 (08:55→21:14)
[2019-01-24] MEDS: HEPARIN 5,000 UNIT/1 ML VIAL SC ×2 (08:57→21:20)
[2019-01-24] MEDS: OXYCODONE/ACETAMINOPHEN (5/325) TAB PO (16:38)
[2019-01-25] MEDS: HYDROmorphONE 2 MG/ML SYG IV ×2 (02:09→09:54)
[2019-01-25] MEDS: DIPHENHYDRAMINE 50 MG INJ IV ×2 (02:12→10:05)
[2019-01-25] MEDS: SOD CHLORIDE 0.9% 1,000 ML IV (04:17)
[2019-01-25 05:42] LABS: ADD MAN DIFF? NO
[2019-01-25 05:51] LABS: BASOPHILS % 0.4 % (0.0-2.0); EOSINOPHILS # 0.2 10^3/ul (0.0-0.5); EOSINOPHILS % 3.9 % (0.0-7.0); HEMATOCRIT 31.5 % (37.0-47.0); HEMOGLOBIN 9.7 g/dl (12.0-16.0); LYMPHOCYTES % 36.2 % (15.0-51.0); MEAN CORPUSCULAR HEMOGLOBIN 27.2 pg (29.0-33.0); MEAN CORPUSCULAR HGB CONC 30.8 g/dl (32.0-37.0); MEAN CORPUSCULAR VOLUME 88.5 fl (82.0-101.0); MONOCYTE # 0.3 10^3/ul (0.3-0.9); MONOCYTES % 6.3 % (0.0-11.0); NEUTROPHIL # 2.9 10^3/ul (1.6-7.5); PLATELET COUNT 236 10^3/UL (140-415); RED BLOOD COUNT 3.56 10^6/ul (4.20-5.40); RED CELL DISTRIBUTION WIDTH 14.7 % (11.5-14.5)
[2019-01-25 05:51] LABS: WHITE BLOOD COUNT 5.4 10^3/ul (4.8-10.8)
[2019-01-25 06:37] LABS: ALANINE AMINOTRANSFERASE 36 IU/L (13-69); ALBUMIN 3.7 g/dl (3.3-4.9); ALBUMIN/GLOBULIN RATIO 1.02; ALKALINE PHOSPHATASE 101 IU/L (42-121); ANION GAP 7 (5-13); ASPARTATE AMINO TRANSFERASE 45 IU/L (15-46); BILIRUBIN,INDIRECT 0.3 mg/dl (0-1.1); BILIRUBIN,TOTAL 0.3 mg/dl (0.2-1.3); BLOOD UREA NITROGEN 7 mg/dl (7-20); CALCIUM 9.1 mg/dl (8.4-10.2); CARBON DIOXIDE 27 mmol/L (21-31); CHLORIDE 107 mmol/L (97-110); CREATININE 0.54 mg/dl (0.44-1.00); Estimated GFR > 60 mL/min (>60); GLUCOSE 112 mg/dl (70-220); POTASSIUM 4.4 mmol/L (3.5-5.1); SODIUM 141 mmol/L (135-144); TOTAL PROTEIN 7.3 g/dl (6.1-8.1)
[2019-01-25 06:50] LABS: PHOSPHORUS 4.7 mg/dl (2.5-4.9)
[2019-01-25 06:50] LABS: MAGNESIUM 2.1 mg/dl (1.7-2.5)
[2019-01-25] MEDS: ALBUTEROL 0.083% (NEB) 2.5 MG/3 ML AMP HHN ×2 (07:45→13:01)
[2019-01-25 08:05] LABS: AMYLASE 59 U/L (11-123)
[2019-01-25 08:05] LABS: LIPASE 170 U/L (23-300)
[2019-01-25] MEDS: FAMOTIDINE 20 MG TAB PO (09:54)
[2019-01-25] MEDS: HEPARIN 5,000 UNIT/1 ML VIAL SC (09:58)
[2019-01-25] MEDS: ONDANSETRON 4 MG INJ IV (10:00)
== END 2019-01-25 15:55 | disposition home or self-care (01) | DRG 440 ==
LOC: E/R 16:40 → MS1 21:08
DX: K85.90 Acute pancreatitis without necrosis or infection, unspecified (principal); E66.9 Obesity, unspecified; Z68.36 Body mass index [BMI] 36.0-36.9, adult; K86.1 Other chronic pancreatitis; K29.70 Gastritis, unspecified, without bleeding; E78.5 Hyperlipidemia, unspecified; R10.13 Epigastric pain
CPT/HCPCS: 74177; 80048; 80053; 80307; 82150; 82270; 82728; 82784; 82787; 83036; 83540; 83690; 83735; 84100; 84478; 84484; 85025; 85610; 85730; 87040-91; 93005; 94640; 94664; 96374; 96375; 96376; 99285-25